=== PATIENT | female | born 1935 | race Caucasian/White ===

== ENCOUNTER → 2019-09-11 | Outpatient (CLI) | payer OTHER, MEDICARE ==
[~2019-09-11] MED LIST: ADVAIR HFA115 MCG/21 INH; AMOXICILLIN 50500 MG PO; ASPIRIN325 OR; AVAPRO75 MG PO; BONIVA150 MG PO; CALCIUM 600 +1 EAC1 PO; CALCIUM PO; CEFUROXIME250 MG PO; CENTRUM SILVER1 EAC4 PO; CLONAZEPAM 1 MG1 M1 PO; GABAPENTIN OR; HYDROCODON-ACE1 EAC8; HYDROCODONE-APA1 TA1 PO; KEFLEX250 MG PO; MOBIC15 MG; MYRBETRIQ PO; NEURONTIN 300300 M1 PO; NORCO 5-325 TA1 EACH PO; PRILOSEC 20 MG20 MG OR; REQUIP PO; SIMVASTATIN40 MG PO; SOTALOL 120 MG120 MG PO; STOOL SOFTENER100 M1 PO; SYNTHROID100 MCG OR; ZOFRAN ODT4 MG PO; ZOLOFT50 MG PO; ZYRTEC10 MG PO
== END ==
LOC: SJCVC 12:44
DX: I47.1 Supraventricular tachycardia (principal); I25.10 Atherosclerotic heart disease of native coronary artery without angina pectoris; I10 Essential (primary) hypertension; E78.5 Hyperlipidemia, unspecified; E11.9 Type 2 diabetes mellitus without complications; E03.9 Hypothyroidism, unspecified; Z90.710 Acquired absence of both cervix and uterus; Z96.641 Presence of right artificial hip joint; Z87.891 Personal history of nicotine dependence

== ENCOUNTER → 2020-03-29 | Outpatient (CLI) | payer OTHER, MEDICARE | LOC: SJCVC 14:07 | PROVIDERS: ATTEND Internal Medicine | DX: I44.0 Atrioventricular block, first degree (principal); R94.31 Abnormal electrocardiogram [ECG] [EKG]; I25.10 Atherosclerotic heart disease of native coronary artery without angina pectoris; I47.1 Supraventricular tachycardia; I10 Essential (primary) hypertension; E78.5 Hyperlipidemia, unspecified; E11.9 Type 2 diabetes mellitus without complications; Z79.899 Other long term (current) drug therapy ==

== ENCOUNTER → 2020-12-12 | Outpatient (CLI) | payer OTHER, MEDICARE | LOC: SJCVC 13:11 | PROVIDERS: ATTEND Internal Medicine | DX: R94.31 Abnormal electrocardiogram [ECG] [EKG] (principal); I44.0 Atrioventricular block, first degree; I25.10 Atherosclerotic heart disease of native coronary artery without angina pectoris; I47.1 Supraventricular tachycardia; I10 Essential (primary) hypertension; E78.5 Hyperlipidemia, unspecified; E11.9 Type 2 diabetes mellitus without complications; E03.9 Hypothyroidism, unspecified; M19.90 Unspecified osteoarthritis, unspecified site; Z90.710 Acquired absence of both cervix and uterus; Z88.5 Allergy status to narcotic agent; Z88.8 Allergy status to other drugs, medicaments and biological substances; Z79.82 Long term (current) use of aspirin; Z79.899 Other long term (current) drug therapy; Z87.891 Personal history of nicotine dependence ==

== ENCOUNTER 2021-05-24 15:33 | Inpatient (IN) | payer OTHER, MEDICARE ==
[~2021-05-24] VITALS: Ht 170.2 cm; Wt 82.2 kg
[2021-05-24 15:34] VITALS: BP 166/84
[2021-05-24 16:24] LABS: HEMATOCRIT 25.9 % (37.0-47.0); HEMOGLOBIN 8.6 gm/dL (12.0-15.0); MCH 28.2 pg (26.0-34.0); MCHC 33.4 g/dL (28.0-37.0); MCV 84.5 fL (80.0-100.0); RBC 3.06 mil/uL (4.20-5.00); WBC 16.5 thou/uL (4.0-11.0)
[2021-05-24 16:30] LABS: ANION GAP 13 mmol/L (7-16); BUN 23 mg/dL (7-18); CALCIUM 8.2 mg/dL (8.5-10.1); CHLORIDE 97 mmol/L (98-107); CO2 25 mmol/L (21-32); CREATININE 1.3 mg/dL (0.6-1.0); GLUCOSE 170 mg/dL (74-106); SODIUM 135 mmol/L (136-145)
[2021-05-24 16:40] LABS: ALBUMIN 3.2 g/dL (3.4-5.0); MAGNESIUM 1.8 mg/dL (1.8-2.4); PHOSPHORUS 2.7 mg/dL (2.6-4.7); SALICYLATE < 2.8 mg/dL (2.8-20.0); SGOT 27 U/L (15-37); SGPT 30 U/L (14-59); TOTAL BILIRUBIN 0.7 mg/dL (0.2-1.0); TOTAL PROTEIN 6.2 g/dL (6.4-8.2)
[2021-05-24 17:41] LABS: URINE BILIRUBIN NEGATIVE (Negative); URINE BLOOD TRACE (Negative); URINE CLARITY CLEAR; URINE COLOR YELLOW; URINE GLUCOSE-RANDOM* NEGATIVE (Negative); URINE KETONES 1+ (Negative); URINE LEUKOCYTES-REFLEX NEGATIVE (Negative); URINE NITRITE-REFLEX NEGATIVE (Negative); URINE PROTEIN (DIPSTICK) TRACE (Negative); URINE SPECIFIC GRAVITY >= 1.030 (1.005-1.035); URINE UROBILINOGEN 0.2 E.U./dl (0.2-1.0)
[2021-05-24 18:16] LABS: AMP/METHAMP Negative (Negative); BARBITURATES Negative (Negative); BENZODIAZEPINES Negative (Negative); COCAINE Negative (Negative); METHADONE Negative (Negative); OPIATES Negative (Negative); PCP Negative (Negative)
[2021-05-25 04:50] LABS: HEMATOCRIT 25.5 % (37.0-47.0); HEMOGLOBIN 8.1 gm/dL (12.0-15.0); MCH 27.3 pg (26.0-34.0); MCHC 31.9 g/dL (28.0-37.0); MCV 85.7 fL (80.0-100.0); RBC 2.97 mil/uL (4.20-5.00); RDW 15.3 % (10.5-14.5); WBC 15.6 thou/uL (4.0-11.0)
[2021-05-25 05:04] LABS: CALCIUM 7.7 mg/dL (8.5-10.1); CREATININE 1.4 mg/dL (0.6-1.0); POTASSIUM 3.6 mmol/L (3.5-5.1)
--- NOTE | 2021-05-25 07:34 | NUR ---
POSITIVE BLOOD CULTURES REPORTED TO CHARGE NURSE
[2021-05-25 11:25] VITALS: BP 85/51
[2021-05-25 11:58] VITALS: BP 103/52
[2021-05-25 16:00] VITALS: BP 102/53
--- NOTE | 2021-05-25 19:42 | NUR ---
PT IS AXOX4, COOPERATIVE. VS 90-100SBP, AFEBRILE, AFIB ON THE MONITOR. PT C/O CHRONIC PAIN IN R HIP, PAIN IN L SHOULDER, MOST LIKELY R/T POSITIONING OFF HIP. PT ALSO C/O LEGS MOVING FROM RESTLESS SYNDROME. PT EDUCATED ON HOW RX CLONAZEPAM IS TAKEN HS. PT COMMUNICATED UNDERSTANDING BUT NEEDS REINFORCEMENT. PT ON 1500ML FLUID RESTRICTION. POC IS TO CONTINUE TO MONITOR HR FOR AFIB RVR, IV ABX FOR CAP. FALL PRECAUTIONS IN PLACE. POSS REHAB FOR PT SHE PROGRESSES TOWARDS D/C GOALS. NO CONCERNS AT THIS TIME.
[2021-05-25 20:30] VITALS: BP 118/61
--- NOTE | 2021-05-25 22:45 | NUR ---
AASSUMED PT CARE AT 1900.PT WAS OBSERVED SITTING UP ON HER BED LEANING ON HER L ARM FOR SUPPORT.MA CATH IN PLACE WITH GOOD OUTPUT.PT ALERT BUT VERY [place],LEFT HEARING AID AT HOME.PT ABLE TO MAKE HER NEEDS KNOWN.FREQUENT CHECKS MAINTAINED.CALL LIGHT WITHIN REACH.
[2021-05-26 05:00] VITALS: BP 111/55
[2021-05-26 05:20] LABS: ABSOLUTE NEUTROPHILS 13.1 thou/uL (1.4-8.2); BASOPHILS 0.2 % (0.0-2.0); EOSINOPHILS 0.2 % (0.0-3.0); HEMATOCRIT 25.9 % (37.0-47.0); HEMOGLOBIN 8.4 gm/dL (12.0-15.0); LYMPHOCYTES 3.4 % (24.0-44.0); MCH 27.7 pg (26.0-34.0); MCHC 32.4 g/dL (28.0-37.0); MCV 85.5 fL (80.0-100.0); MONOCYTES 10.1 % (1.0-8.0); PLATELET COUNT 240 thou/uL (150-400); POLYS 86.1 % (36.0-66.0); RBC 3.03 mil/uL (4.20-5.00); WBC 15.2 thou/uL (4.0-11.0)
[2021-05-26 05:49] LABS: ALBUMIN 2.6 g/dL (3.4-5.0); CALCIUM 7.8 mg/dL (8.5-10.1); CREATININE 1.6 mg/dL (0.6-1.0); PHOSPHORUS 3.1 mg/dL (2.5-4.9)
[2021-05-26 05:52] LABS: POTASSIUM 2.9 mmol/L (3.5-5.1)
[2021-05-26 07:29] VITALS: BP 102/65
--- NOTE | 2021-05-26 07:39 | EKG ---
[place] [address] [employer] [facility] [employer] [place] [address] ELECTROCARDIOGRAM REPORT Name: ALEXEY SIDDIQUI Room #: 212-P ADM IN M.R.#: [id number] Admission: 05/24/21 Attend Phys: Leodan Parsons MD Discharge: Date of : 34 Report #: [id number] [facility] ED Test Date: 2021-05-24 Test Time: 19:18:36 Pat Name: ALEXEY SIDDIQUI Department: Room: [facility] Gender: F Heavy Equipment Diesel Mechanic: fransisco : 1935 Requested By: Quique Villanueva Order Number: [id number] MD: Ihsan Alfaro Measurements Intervals [place] Rate: 115 P: [place]: QRS: 10 QRSD: 100 T: 59 QT: 351 QTc: 486 Interpretive Statements Atrial fibrillation Ventricular premature complex RSR' in V1 or V2, right VCD or RVH Borderline prolonged QT interval Baseline wander in lead(s) V2 Compared to ECG 08/08/2010 08:12:59 Ventricular premature complex(es) now present Right ventricular hypertrophy now present RSR' in V1 or V2 now present Sinus bradycardia no longer present First degree AV block no longer present Electronically Signed On 05-26-2021 7:38:52 POSTDOCTORAL RESEARCH ASSOCIATE by Ihsan Alfaro [email or web address] <ELECTRONICALLY SIGNED> By: Ihsan Alfaro MD, FACC 05/26/21 0738 17 17 Ihsan Alfaro MD, [facility] /EPI
[2021-05-26 10:37] LABS: % SATURATION 5 % (20-39); IRON 10 ug/dL (50-170); TIBC 215 ug/dL (250-450)
[2021-05-26 11:44] VITALS: BP 93/52
[2021-05-26 15:38] VITALS: BP 99/52
--- NOTE | 2021-05-26 17:15 | NUR ---
met with patient who resides in independent living at [facility]. She reports she uses a walker. She reports she has home health care but cannot recall agency. patient independent with adls. She reports she has only recently moved to [place] in last 4 months. She has had 2 falls in apt. Spouse in November. She reports she has not been to [facility]. Therapy evals in process. Casemgt following.
[2021-05-26 19:19] VITALS: BP 102/52
[2021-05-27 03:43] VITALS: BP 102/44
[2021-05-27 05:33] LABS: HEMATOCRIT 25.1 % (37.0-47.0); HEMOGLOBIN 8.1 gm/dL (12.0-15.0); MCH 27.4 pg (26.0-34.0); MCHC 32.2 g/dL (28.0-37.0); MCV 84.9 fL (80.0-100.0); RBC 2.96 mil/uL (4.20-5.00); RDW 15.1 % (10.5-14.5); WBC 11.5 thou/uL (4.0-11.0)
[2021-05-27 05:50] LABS: ALBUMIN 2.5 g/dL (3.4-5.0); CALCIUM 7.8 mg/dL (8.5-10.1); CREATININE 1.4 mg/dL (0.6-1.0); PHOSPHORUS 2.4 mg/dL (2.5-4.9); POTASSIUM 3.5 mmol/L (3.5-5.1)
--- NOTE | 2021-05-27 06:15 | NUR ---
PATIENT HAS BEEN AFIB, RA, AND A&OX4 THROUGHOUT THE NIGHT. PATENT IV STILL PRESENT. MA CATHETER IN PLACE. COMPLAINTS OF BACK PAIN A COUPLE TIMES DURING THE NIGHT-RELIEVED BY MEDICATION. PATIENT REPORTED SORE THROAT WITH BREATHING TREATMENTS--ORDERS RECEIVED FOR THROAT LOSENGES. PATIENT RESTING COMFORTABLY AT THIS TIME.
[2021-05-27 07:17] VITALS: BP 109/60
--- NOTE | 2021-05-27 07:51 | EKG ---
[address] [place] [address] ELECTROCARDIOGRAM REPORT Name: SIDDIQUIJOHNH YANNA Room #: 212- ADM IN M.R.#: [id number] Admission: 05/24/21 Attend Phys: Lawrence Pa Discharge: Date of : 34 Report #: [id number] [facility] Test Date: 2021-05-27 Test Time: 07:29:36 Pat Name: ALEXEY SIDDIQUI Department: Room: 212 Gender: F Patent Law Specialist: BABS : 1935 Requested By: Jeffery Ventura Order Number: [id number] : Ihsan Alfaro Measurements Intervals [place] Rate: 94 P: [place]: QRS: 39 QRSD: 98 T: 61 QT: 407 QTc: 510 Interpretive Statements Atrial fibrillation Ventricular premature complex Compared to ECG 05/24/2021 19:18:36 Right ventricular hypertrophy no longer present Electronically Signed On 05-27-2021 7:51:05 CUSTOMER ACCOUNT ADMINISTRATOR by Ihsan Alfaro [email or web address] <ELECTRONICALLY SIGNED> By: Ihsan Alfaro MD, [facility] 05/27/21 0751 0729 0729 Ihsan Alfaro MD, FACC /EPI
--- NOTE | 2021-05-27 09:35 | HC ---
[facility] [place] [address] CONSULTATION Name: ALEXEY SIDDIQUI Room #: 212-P ADM IN M.R.#: [id number] Admission: 05/24/21 Attend Phys: Lawrence Pa Discharge: Date of : 34 Report #: [id number] THIS REPORT FOR: cc: Mallory Monte MD,Dinora Jovel,Nikolas Marsh MD ~ DATE OF SERVICE: 05/25/2021 REASON FOR CONSULTATION: Atrial fibrillation with rapid ventricular response. HISTORY OF PRESENT ILLNESS: This is a very pleasant 86-year-old female patient who was in her nursing care facility and was transferred for weakness and nausea and vomiting. The patient has a history of hypertension, diabetes, who came from [facility] with weakness and she states she has been not feeling well for several days. She has been having some nausea, vomiting and fell a couple of times over the last several months due to weakness different than what she feels today. The patient denies any chest discomfort, fever, chills or night sweats. She is a little bit disoriented, but mostly complains of her having pain in her hip area. The patient presented to the Emergency Room and was in atrial fib with a rapid rate and was started on diltiazem with rate has been better controlled. No orthopnea or PND described prior to the last several days when she started feeling poorly. ALLERGIES: CODEINE, REQUIP, ACETAMINOPHEN, PROPOXYPHENE AND PROMETHAZINE. PAST MEDICAL HISTORY: Significant for: 1. Hypertension. 2. Hypothyroidism, treated medically. 3. Non-insulin requiring diabetes mellitus. 4. Gastroesophageal reflux disease. 5. Dyslipidemia. PAST SURGICAL HISTORY: Consistent with: 1. Fracture of the styloid process of the left ulna. 2. Facial contusions. 3. Left radius bone fracture. 4. Total right hip replacement and revision. 5. Partial thyroidectomy. 6. Bilateral cataract without implants. 7. Lumbar laminectomy. MEDICATIONS: From the longterm were Synthroid 100 mcg daily, omeprazole 20 daily, aspirin 325 daily, simvastatin 40 daily, irbesartan 75 daily, Zoloft 50 daily, clonazepam 1 mg, hydrocodone, Zyrtec 10 mg, cephalexin 250, calcium carbonate, multivitamin, Boniva and stool softener. [address] [address] CONSULTATION Name: SIDDIQUIALEXEY Room #: [address] [place] [address] IN .R.#: [id number] Admission: 05/24/21 Attend Phys: Lawrence Pa Discharge: Date of : 34 Report #: [id number] SOCIAL HISTORY: The patient lives at institution. Does not smoke currently. She was a former smoker. Does not consume alcohol. Exercises regularly. REVIEW OF SYSTEMS: Except for symptoms previously mentioned and those commensurate with comorbid states a 10-point review of system is negative. LABORATORY DATA: Demonstrate and H and H of 8.6 and 25.5 with a platelet count of 246,000. Troponin high sensitivity is 48. TSH is 0.457, potassium 4.0, BUN and creatinine are 23 and 1.3. PHYSICAL EXAMINATION: VITAL SIGNS: Reviewed and noted in the chart. HEENT: Normocephalic, atraumatic. Pupils are equal, round, reactive to light and accommodation. Extraocular muscles are intact. Sclerae and conjunctivae are anicteric. NECK: JVD is normal. Carotid upstrokes are bilaterally symmetrical. No bruits are heard. No thyromegaly. No lymphadenopathy. LUNGS: Clear to auscultation. No wheezes, rhonchi or crackles. No CVA tenderness. CARDIAC: Demonstrates irregularly irregular rhythm, controlled rate. No murmurs. ABDOMEN: Soft, nontender, nondistended. Normal bowel sounds. EXTREMITIES: Without cyanosis, clubbing or edema. Distal pulses are intact. DTR symmetrical. NEUROLOGIC: Cranial nerves 2-12 are grossly normal and symmetrical. PSYCHIATRIC: Alert, oriented with normal affect. SKIN: Warm and dry. RADIOLOGIC DATA: Diffuse coarse infiltrates are noted on chest x-ray. CT scan of head shows no bleed. IMPRESSION: 1. Atrial fibrillation with rapid ventricular response, multifactorial, on IV diltiazem. Continue as is. We will get echocardiogram in the a.m. to evaluate left ventricular function and contractility. She has been likely in atrial fibrillation for more than 48 hours and anticoagulation prior to cardioversion is warranted or DAIN approach can be followed if necessary. 2. Weakness, multifactorial. Had been having physical therapy. Has fallen in the past. Physical therapy needs to be optimized. Geriatric consultation will be appropriate. 3. Hypertension, well controlled at home. Apparently no need to make any other changes. We will monitor closely while hospitalized and then determine the next options of how to reinitiate medications. 4. Dyslipidemia, on statin. [place] [employer] step 1 diet at the longterm would be appropriate. [facility] [address] [place] [address] CONSULTATION Name: ALEXEY SIDDIQUI Room #: 212-P [facility] IN M.R.#: [id number] Admission: 05/24/21 Attend Phys: Lawrence Pa Discharge: Date of : 34 Report #: [id number] 5. Hypothyroidism. Appears to be euthyroid, on supplementation. 6. Diabetes mellitus. No documentation of any unusual lab work, not available for me to review at present time. <ELECTRONICALLY SIGNED> By: Nikolas Jovel MD 05/27/21 0935 1117 1312 Nikolas Jovel MD /nt
[2021-05-27 11:17] VITALS: BP 99/51
[2021-05-27 11:57] LABS: URINE BILIRUBIN NEGATIVE (Negative); URINE BLOOD 1+ (Negative); URINE CLARITY CLEAR; URINE COLOR YELLOW; URINE GLUCOSE-RANDOM* NEGATIVE (Negative); URINE KETONES NEGATIVE (Negative); URINE LEUKOCYTES-REFLEX NEGATIVE (Negative); URINE NITRITE-REFLEX NEGATIVE (Negative); URINE PROTEIN (DIPSTICK) NEGATIVE (Negative); URINE SPECIFIC GRAVITY 1.015 (1.005-1.035); URINE UROBILINOGEN 0.2 E.U./dl (0.2-1.0)
[2021-05-27 12:04] LABS: SQUAMOUS 0-3 Few /LPF (0-3); URINE WBC-REFLEX None Seen /HPF (0-5)
[2021-05-27 12:05] LABS: BACTERIA-REFLEX None Seen /HPF (None Seen); CRYSTALS None Seen /LPF (None Seen); URINE RBC None Seen /HPF (NONE SEEN)
--- NOTE | 2021-05-27 13:21 | NUR ---
patient evaled by acute rehab 5N. Patient accepted. patient agreeable. Sp with dtr Ryanne discussed acute rehab she is agreeable. Assured patient would stay in acute rehab until team conference on .
--- NOTE | 2021-05-27 15:12 | NUR ---
PATIENT COMPLAINING OF SEVERE ABDOMINAL PAIN THIS MORNING. DR. KELLEY NOTIFED WHILE PATIENT IN ROUTE TO CT OF CHEST. SUGGESTED IMAGING OF ABDOMEN, DR. KELLEY DECLINED, NOTED ABDOMINAL CT ON ADMIT. ORDERS FOR ENEMA BUT PATIENT REFUSED, DR. KELLEY NOTIFIED OF DECLINE. ORDERS TO GIVE DOSE OF MILK OF MAG. PATIENT ALSO COMPLAINING OF HIP PAIN BUT HAS REFUSED TO TAKE HYDROCODONE FOR PAIN, OFFERED THROUGH OUT THE DAY. INQUIRED IF PATIENT WOULD LIKE ANYTHING ELSE TO HELP WITH PAIN. WARM BLANKET PROVIDED. CURRENTLY SITTING UP IN CHAIR. VOICES NO NEEDS OR CONCERNS AT THIS TIME.
[2021-05-27 15:32] VITALS: BP 105/61; BP 109/61; BP 111/42
[2021-05-27 19:19] VITALS: BP 104/56
--- NOTE | 2021-05-28 04:08 | NUR ---
PATIENT RESTING IN BED DURING SHIFT. C/O PAIN IN LEFT AND RIGHT HIP AND LOWER ABDOMEN RIGHT AND LEFT. PATIENT UP TO BR SEVERAL TIMES DURING SHIFT. USES GAIT BELT, WALKER AND OXYGEN, CHANGE TO BSC. WAITING FOR OCCULT STOOL SAMPLE.
[2021-05-28 04:09] VITALS: BP 140/63
[2021-05-28 05:56] LABS: ABSOLUTE NEUTROPHILS 9.1 thou/uL (1.4-8.2); BASOPHILS 0.4 % (0.0-2.0); EOSINOPHILS 2.2 % (0.0-3.0); HEMATOCRIT 24.4 % (37.0-47.0); LYMPHOCYTES 4.4 % (24.0-44.0); MCH 27.9 pg (26.0-34.0); MCHC 32.8 g/dL (28.0-37.0); MCV 85.1 fL (80.0-100.0); MONOCYTES 9.9 % (1.0-8.0); PLATELET COUNT 310 thou/uL (150-400); POLYS 83.1 % (36.0-66.0); RBC 2.87 mil/uL (4.20-5.00); RDW 15.2 % (10.5-14.5); WBC 10.9 thou/uL (4.0-11.0)
[2021-05-28 06:31] LABS: CALCIUM 8.2 mg/dL (8.5-10.1); CREATININE 1.2 mg/dL (0.6-1.0); POTASSIUM 4.2 mmol/L (3.5-5.1)
[2021-05-28] MEDS ORDERED: DILTIAZEM 24HR300 M2 PO (08:45)
[2021-05-28] MEDS ORDERED: CEFUROXIME500 MG PO (08:46)
[2021-05-28 08:50] VITALS: BP 116/71
[2021-05-28] MEDS ORDERED: BAYER CHEWABLE81 MG PO (08:52)
[2021-05-28] MEDS ORDERED: SODIUM CHLORI1000 MG PO (08:52)
[2021-05-28 09:57] VITALS: BP 116/71
--- NOTE | 2021-05-28 10:55 | NUR ---
NO FALLS OR INJURIES THIS SHIFT. ALL SAFETY MEASURES IN PLACE. VSS. PATIENT ABLE TO COMPLETE ADLS WITH ASSISTANCE. PATIENT C/O PAIN TO ABDOMEN BUT HAS REFUSED HYDROCODONE. MIRLAX ORDERED AND GIVEN TO PATIENT IN APPLE JUICE. PATIENT UP IN CHAIR THIS MORNING FOR ONE HOUR AND THEN RETURNED TO BED. NEW ORDER FOR 300 MG OF CARDIZEM BUT 240MG HAD ALREADY BEEN GIVEN WITH MORNING MEDICATIONS. NEW ORDER MARKED OFF. CALL FROM LAUREN WITH REHAB FOR ADDITIONAL INFORMATION ON PATIENT. WAITING FOR DAY NURSE TO CALL FOR COMPLETE REPORT. [facility]
--- NOTE | 2021-05-28 11:50 | NUR ---
Patient to tranfer to acute 5N today. Sp with lisa warren who is bringing patients close today. Updated plan admission to [id number] no further needs.
--- NOTE | 2021-05-28 12:07 | NUR ---
REPORT GIVEN BY HAILE. PATIENT TRANSFERRED UP TO 5N.
== END 2021-05-28 12:01 | disposition home health service (06) | DRG 871 ==
LOC: ER 15:33 → EROBS 22:25 → 2N 22:25
PROVIDERS: Emergency Medicine; Internal Medicine; Nurse Practitioner Family; ADMIT Hospitalist; ATTEND Hospitalist
DX: A40.1 Sepsis due to streptococcus, group B (principal); J18.9 Pneumonia, unspecified organism; I48.92 Unspecified atrial flutter; E87.1 Hypo-osmolality and hyponatremia; Z20.822 Contact with and (suspected) exposure to COVID-19; K21.9 Gastro-esophageal reflux disease without esophagitis; Z96.641 Presence of right artificial hip joint; E03.9 Hypothyroidism, unspecified; E78.00 Pure hypercholesterolemia, unspecified; F32.9 Major depressive disorder, single episode, unspecified; F41.9 Anxiety disorder, unspecified; I48.91 Unspecified atrial fibrillation; E78.5 Hyperlipidemia, unspecified; R53.81 Other malaise; Z60.2 Problems related to living alone; I25.10 Atherosclerotic heart disease of native coronary artery without angina pectoris; E11.22 Type 2 diabetes mellitus with diabetic chronic kidney disease; I12.9 Hypertensive chronic kidney disease with stage 1 through stage 4 chronic kidney disease, or unspecified chronic kidney disease; D50.9 Iron deficiency anemia, unspecified; M81.0 Age-related osteoporosis without current pathological fracture; N18.32 Chronic kidney disease, stage 3b; M19.90 Unspecified osteoarthritis, unspecified site; Z98.42 Cataract extraction status, left eye; Z98.41 Cataract extraction status, right eye; Z88.6 Allergy status to analgesic agent; Z88.8 Allergy status to other drugs, medicaments and biological substances; Z87.891 Personal history of nicotine dependence; Z79.82 Long term (current) use of aspirin; Z79.899 Other long term (current) drug therapy
CPT/HCPCS: 10081

== ENCOUNTER 2021-05-27 12:09 | Inpatient (IN) | payer OTHER, MEDICARE ==
[~2021-05-27] VITALS: Ht 170.2 cm; Wt 81.8 kg
[~2021-05-27 12:09] MED LIST changes: -PRILOSEC 20 MG20 MG OR; +PRILOSEC OTC20 MG PO; +SYNTHROID100 MC1 PO; -SYNTHROID100 MCG OR; +ZOLOFT 50 MG TA50 MG PO; -ZOLOFT50 MG PO
[2021-05-28] MEDS ORDERED: DILTIAZEM 24HR300 M2 PO (08:45)
[2021-05-28] MEDS ORDERED: CEFUROXIME500 MG PO (08:46)
[2021-05-28] MEDS ORDERED: BAYER CHEWABLE81 MG PO (08:52)
[2021-05-28] MEDS ORDERED: SODIUM CHLORI1000 MG PO (08:52)
--- NOTE | 2021-05-28 12:44 | NUR ---
1200 ADMITTED TO ROOM 510. KEVIN IS ALERT AND ORIENTED X4., BUT IS VERY LIME AND USES HEARING AIDS. PATIENT WEARS GLASSES, AND HEARING AIDS BILATERALLY. LUNGS ARE CLEAR AND DEMINISHED, WITH OCCASIONAL COUGH. PATIENT CONINUES ON 02 AT 2L PER N/C. 02 SAT 98%. PATIENT CONTINUES ON RESPIRATORY TX. ABD IS SOFT WITH BSX4. NO BM X5-6 DAYS. LAXATIVES GIVEN. PATIENT IS UP TO THE BSC WITH ASSIST OF 1 STAFF AND GAIT BELT. FALL AND SAFETY PROTOCOLS IN PLACE. C/O BACK PAIN. MEDICATED WITH PRN PAIN MED. PT/OT/ST EVALS TO BE DONE LATER TODAY AND IN THE A.M. APPETITE IS POOR. WILL CONTINUE TO MONITER.
--- NOTE | 2021-05-28 16:08 | NUR ---
CONSULT COMPLETED WITH DR. GHOSH'S OFFICE SPOKE WITH (JD). ALSO COMPLETED CONSULT WITH DR. HIGGINS'S OFFICE SPOKE WITH (EVE). MESSAGE LEFT ON DR. UMANZOR'S OFFICE VOICEMAIL THE OFFICE IS CLOSED FOR HOLIDAY AT THIS TIME, TO REOPEN ON 06/02/21. CARGO TRIMMER (MONICA) AWARE PATIENT IS HERE, WILL ROUND ON HER TOMORROW.
--- NOTE | 2021-05-28 16:58 | NUR ---
86 yr old male admitted to hospital on 05/24/21 with weakness, . she was diagnosed with afib with RVR, CAP with sepsis, and anemia. cardiology consulted. she is given 02 per NC, abx, and nebs for her pna. pt lives at [facility] only for few months since her in November. independent with ADLs. Has a 4ww. She has had 2 falls since she moved to [facility]. Daughter briana and her grandson samantha main contacts. There are meals that can be ordered to room or can go to dining room for meals. No stairs, has elevator can use. New to acute rehab today. Cm visited with her daughter briana via phone call and have asked for a updated facesheet with correct contacts. Will cont following as needed for dc needs.
[2021-05-28 20:02] VITALS: BP 135/56
--- NOTE | 2021-05-28 22:27 | NUR ---
ASSUMED CARE OF PT AT 1910. PT IS A&OX4 & FORGETFUL AT TIMES. IS EKUK & HAS NICOLAS. IS ON 2L OF O2/NC. DENIES SOB OR DIFFICULTY BREATHING. IS STABLE. REPORTS GENERALIZED PAIN, BUT REFUSED MEDS. THERAPUETIC INTERVENTIONS USED TO MANAGE. IS ABLE TO TURN SELF WITH SOME ASSISTANCE Q2H. HEELS OFF LOADED. PT IS CURRENTLY LYING IN BED, WATCHING TV. CALL LIGHT WITHIN REACH. IS UP WITH 1 ASSIST, GB, WALKER. FALL PRECAUTIONS & HOURLY ROUNDING CONTINUED THIS SHIFT. LABS & VITALS REVIEWED. WILL CONTINUE TO MONITOR.
[2021-05-29 05:34] LABS: HEMATOCRIT 23.5 % (37.0-47.0); HEMOGLOBIN 7.6 gm/dL (12.0-15.0); MCH 27.8 pg (26.0-34.0); MCHC 32.5 g/dL (28.0-37.0); MCV 85.5 fL (80.0-100.0); RBC 2.74 mil/uL (4.20-5.00); RDW 15.6 % (10.5-14.5); WBC 13.8 thou/uL (4.0-11.0)
[2021-05-29 06:25] LABS: CALCIUM 8.6 mg/dL (8.5-10.1); CREATININE 0.9 mg/dL (0.6-1.0); POTASSIUM 4.1 mmol/L (3.5-5.1)
[2021-05-29 07:27] VITALS: BP 138/59
[2021-05-29 10:00] VITALS: BP 133/59
--- NOTE | 2021-05-29 16:45 | NUR ---
ASSUMED C/O PT AT 0700. PT HAS AUDIBLE WHEEZING. RT NOTIFIED, MADE AWARE. PO LASIX AND SCHEDULED BRETHING TX ORDERED. PT NOW ON RA WITH NO AUDIBL WHEEZING PT GAIT STEADY WITH WALKER GAIT BELT, UP TIMES ONE WITH MINIUM ASSIT. PT HAD TROUBLE SWAOLLOWING PILLS, THIS NURSE GAVE PILLS CRUSHED IN APPLESAUCE HOWEVER PT DID NOT LIKE THAT. PT PT DOES NOT LIKE TAKING HER MEDS SHE TOOK ALL BUT WAS VERY FUSSY ABOUT IT. PT TOOK MOST PILLS ONE AT A TIME IN APPLESAUCE. WILL CONTINUE TO MONITOR.
[2021-05-29 19:35] VITALS: BP 127/61
--- NOTE | 2021-05-30 00:52 | NUR ---
PT ASSESSMENT COMPLETED AND VSS. MEDS GIVEN ORDERED AND WELL TOLERATED. PT CONCERNED ABOUT HER ABILITY TO SWALLOW SOLIDS AND PILLS. SHE STATES THAT THEY SOMETIMES GET STUCK IN HER THROAT. WILL INFORM DAY RN IN THE MORNING. ASST WITH REPOSITION FOR COMFORT. PT IMPULSIVE AND FORGETFUL. SLEEPING WELL AT THIS TIME. PAIUTE OF [place]. WILL CONTINUE TO MONITOR FREQUENTLY.
[2021-05-30 07:15] VITALS: BP 120/50
--- NOTE | 2021-05-30 11:41 | NUR ---
ASSUMED CARE AT 0700. PATIENT IS ALERT AND ORIENTEDX4, BUT FORGETFUL. PATIENT DE JESUS'S, BIOMASS FACILITATOR ARE EQUAL. PATIENT IS VERY [place]. HEARING AIDS IN PLACE. LUNGS ARE DEMINISHED. PATIENT IS ON RA. PATIENT CONTINUES ON PO ABT WITHOUT ADVERSE AFFECTS. PATIENT HAS S.L. IN HER FORARM. PATIENT CONTINUES ON IV IRON WITHOUT ADVERSE AFFECCTS. FALL AND SAFETY PROTOCOLS IN PLACE. DENIES PAIN. PAIENT IS UP WITH ONE STAFF, GAIT BELT AND WALKER. PATIENT IS STILL UNSTEADY ON HER FEET. PATIENT CONTINUES TO PROGRESS SLOWLY TOWARDS D/C GOALS. WILL CONTINUE TO MONITER.
--- NOTE | 2021-05-30 12:01 | NUR ---
Nutrition: Pt admitted with general debility, falls. PMHx: DJD, DM2, afib RVR. Consult received for "food choices, poor appetite." Per [employer], pt is eating 25-75% of meals. She is forgetful. Heart Healthy diet. Labs: BG 132, albumin 2.5. Wt: 180#. Meds: MVI, aspirin. RD will add CHO count to diet order d/t DM. Will also order a Glucerna shake for encouragement of po intake. Please offer alternative menu choices to pt before meal times. Hopeful for increased po intake and good BG control. Otherwise, consider mild nutrition risk at this time.
--- NOTE | 2021-05-30 13:50 | H ---
[facility] [place] [address] HISTORY AND PHYSICAL Name: ALEXEY SIDDIQUI Room #: 510-P ADM IN M.R.#: [id number] Admission: 05/28/21 Attend Phys: Oscar Sandy MD Discharge: Date of : 34 Report #: [id number] THIS REPORT FOR: cc: Dinora Rivera MD,Dinora Sandy,Oscar Vidales MD ~ DATE OF SERVICE: 05/28/2021 HISTORY OF PRESENT ILLNESS: The patient is an 86-year-old white female who was admitted for acute in-hospital inpatient rehabilitation. The patient is an 86-year-old female originally admitted to [facility] on 05/24/2021 with weakness, nausea and decreased oral intake. She was diagnosed with atrial fibrillation with rapid ventricular response, community-acquired pneumonia with sepsis and anemia. Cardiology was consulted. She was placed on Cardizem for rate control. She was given O2 per nasal cannula and given nebulizers for her pneumonia. CT of the head showed no acute findings. CT of the abdomen and pelvis showed no acute findings. She was noted to have medical complexity, with generalized debilitation. She has now been admitted for acute in-hospital inpatient rehabilitation. PAST MEDICAL HISTORY: Includes controlled GERD, diet-controlled diabetic, lumbar laminectomy, total right hip replacement and revision, hypothyroidism, hypertension, high cholesterol, partial thyroidectomy, right hand tendon surgery, colonoscopy, depression, anxiety. FAMILY HISTORY: No pertinent family history. MEDICATIONS: Please see the full medications. ALLERGIES: SHE HAS ALLERGIES TO PROMETHAZINE, CODEINE, REQUIP, AND PROPOXYPHENE. SOCIAL HISTORY: She lives at [facility] living apartment. recently last spring. She is independent with ADLs, has a 4-wheeled walker, history of falls. REVIEW OF SYSTEMS: No complaints of chest pain, shortness of breath or abdominal discomfort. PHYSICAL EXAMINATION: GENERAL: The patient was seen later yesterday, 05/28/2021. She was in no distress. She was sleepy, but easily aroused and was appropriate. Followed basic commands without difficulty. VITAL SIGNS: Temperature 97.2, pulse 80, respirations 20, blood pressure 135/66. HEENT: Appeared to be benign. She was on nasal cannula O2. [address] [address] HISTORY AND PHYSICAL Name: ALEXEY SIDDIQUI Room #: [address] [place] [address] IN M.R.#: [id number] Admission: 05/28/21 Attend Phys: Oscar Sandy MD Discharge: Date of : 34 Report #: [id number] CHEST: Some decreased diffuse breath sounds, otherwise sounded clear. CARDIAC: Sounded irregular. ABDOMEN: Bowel sounds positive, nontender. GENITOURINARY: Deferred. RECTAL: Deferred. EXTREMITIES: She has functional range of motion of both upper extremities. Strength is a grade 4-/5. Lower extremities, no focal calf swelling. Strength is probably a grade 3+/5. She has been min assist with basic sit to stand and has ambulated a short distance min assist with a front-wheeled walker, just a couple of feet. ASSESSMENT: An 86-year-old white female with the following problem list: 1. Medical complexity with generalized debilitation and history of falls. 2. Atrial fibrillation with rapid ventricular response. 3. Community-acquired pneumonia, with sepsis. 4. Question of orthostatic hypotension. 5. Diabetes mellitus type 2. 6. Suspected peripheral neuropathy. 7. History of right total hip arthroplasty. 8. Degenerative arthritis. PLAN: The patient is admitted for acute in-hospital inpatient rehabilitation. Please see the previous and current functional status. As far as risk of complications, the patient has multiple medical comorbidities as noted above. Initial plan of care involves the interdisciplinary acute inpatient rehabilitation program. Measurable functional goals would be for the patient to become modified independent with transfers, mobility and ADLs, so she can hopefully return back to her prior living situation. Goal is to be independent again and a 4-wheeled walker. Prognosis is reasonably good with estimated length of stay probably around 14 days. Potential barriers would include her multiple medical comorbidities and decreased functional status. The patient's diagnosis is appropriate. She meets medical necessity criteria. She does have the tolerance for therapies and has appropriate discharge goals back to the home setting. <ELECTRONICALLY SIGNED> By: Oscar Sandy MD 05/30/21 1350 [id number] 1252 Oscar Sandy MD /nt
[2021-05-30 19:24] VITALS: BP 117/59
--- NOTE | 2021-05-31 03:43 | NUR ---
assumed care approx 1900 evening 05/30. pt alert and oriented x4, pleasant and cooperative, hard of hearing and forgetful at times. pt up to bathroom and changed into gown at hs. pt took hs meds with water one at a time tolerating well as pt refused applesauce. pt appears to be sleeping soundly. bed alarm on and call light in reach. will continue to monitor.
[2021-05-31 05:48] LABS: HEMATOCRIT 22.7 % (37.0-47.0); HEMOGLOBIN 7.5 gm/dL (12.0-15.0); MCH 28.2 pg (26.0-34.0); MCHC 33.1 g/dL (28.0-37.0); MCV 85.4 fL (80.0-100.0); RBC 2.65 mil/uL (4.20-5.00); RDW 15.3 % (10.5-14.5); WBC 17.6 thou/uL (4.0-11.0)
[2021-05-31 05:59] LABS: CALCIUM 8.4 mg/dL (8.5-10.1); CREATININE 1.1 mg/dL (0.6-1.0); MAGNESIUM 2.1 mg/dL (1.8-2.4); POTASSIUM 3.8 mmol/L (3.5-5.1)
[2021-05-31 06:12] LABS: PLATELET COUNT 471 thou/uL (150-400)
[2021-05-31 08:00] VITALS: BP 122/63
[2021-05-31 08:04] LABS: METAMYELOCYTES 2 %; PLATELET ESTIMATE NORMAL
[2021-05-31 09:30] VITALS: BP 122/63
[2021-05-31 17:31] LABS: URINE BILIRUBIN NEGATIVE (Negative); URINE BLOOD NEGATIVE (Negative); URINE CLARITY CLEAR; URINE COLOR YELLOW; URINE GLUCOSE-RANDOM* NEGATIVE (Negative); URINE KETONES NEGATIVE (Negative); URINE LEUKOCYTES NEGATIVE (Negative); URINE NITRITE NEGATIVE (Negative); URINE PROTEIN (DIPSTICK) NEGATIVE (Negative); URINE SPECIFIC GRAVITY <= 1.005 (1.005-1.035); URINE UROBILINOGEN 0.2 E.U./dl (0.2-1.0)
[2021-05-31 20:00] VITALS: BP 140/70
--- NOTE | 2021-06-01 02:12 | NUR ---
assumed care approx 1900 evening 05/31. pt sitting up in recliner at change of shift, alert and oriented x4, appropriate and cooperative, hard of hearing and forgetful. pt assist up to bathroom and gown change at hs. pt took meds one at a time with water (refused applesauce) tolerating well. pt appears to be sleeping soundly.bed alarm on and call light in reach. will continue to monitor.
--- NOTE | 2021-06-01 17:23 | NUR ---
PT CAN ANSWER ORIENTATION QUESTIONS, HOWEVER PT IS VERY CONFUSED. PT IS SUPPOSED TO TAKE MEDS WHOLE ONE AT A TIME IN APPLESAUCE OR PUDDING. PT DOES NOT LIKE THIS AND HAS TO BE REMINDED OF THE RISKS OF SWALLOWING PILLS. PT HAS HARD TIME REMEBERING DAY TO DAY CONVERSATIONS. WILL CONTINUE TO MONITOR.
[2021-06-01 19:50] VITALS: BP 128/65
[2021-06-02 07:15] VITALS: BP 129/64
[2021-06-02 09:45] VITALS: BP 129/64
[2021-06-02 20:06] VITALS: BP 128/55
[2021-06-03 02:27] VITALS: BP 136/60
--- NOTE | 2021-06-03 04:10 | NUR ---
PT calls with needs. Voids per the BR. Also has stress incontinence. Walks well with roller walker needing SBA. Calls appropriately. Room air, no cough noted. Occasional exp wheezes. Encouraged to use I/S. Call light with reach.
[2021-06-03 05:52] LABS: HEMATOCRIT 24.4 % (37.0-47.0); MCH 28.7 pg (26.0-34.0); MCHC 32.8 g/dL (28.0-37.0); MCV 87.5 fL (80.0-100.0); PLATELET COUNT 526 thou/uL (150-400); RBC 2.78 mil/uL (4.20-5.00); RDW 15.9 % (10.5-14.5); WBC 18.7 thou/uL (4.0-11.0)
[2021-06-03 06:07] LABS: CALCIUM 8.4 mg/dL (8.5-10.1); CREATININE 1.1 mg/dL (0.6-1.0); MAGNESIUM 2.2 mg/dL (1.8-2.4); POTASSIUM 3.9 mmol/L (3.5-5.1)
[2021-06-03 07:15] VITALS: BP 135/64
--- NOTE | 2021-06-03 08:00 | NUR ---
PT AWAKE THIS AM. PT STATED SHE USUALLY GETS UP AT 0930. PT STATED SHE WAS SOB, OXYGEN SAT 95% O2 WAS PLACED ON 1L NC FOR COMFORT. LUNGS CLEAR TO BASES. PT DENIES ANY PAIN AT THIS TIME. PT DOES TAKE MEDS WITH RASPBERRY YOGART. PT UP WITH X1 ASSIST WITH WALKER.
[2021-06-03 09:44] LABS: ABSOLUTE NEUTROPHILS 15.9 thou/uL (1.4-8.2); ANISOCYTOSIS SLIGHT; METAMYELOCYTES 1 %; MYELOCYTES 3 %; POIKILOCYTOSIS SLIGHT
[2021-06-03 09:45] LABS: OVALOCYTES OCCASIONAL
--- NOTE | 2021-06-03 12:50 | NUR ---
Team meeting, recommendation: c/o of reflex, mod to mild cognition, memory mod to severe. Pills and bills. diet down grade to [facility] soft. May need mild level of assistance for medication. [place] with hh and additional with medication. BPCI. DC on 06/06/21 at [facility]. HH (pt, ot, st, and nursing).
[2021-06-03 19:44] VITALS: BP 132/56
--- NOTE | 2021-06-04 02:16 | NUR ---
assumed care approx 1900 evening 06/03. pt sitting up in recliner at change of shift, alert and oriented x4, appropriate and cooperative, hard of hearing. pt pleasant and cooperative. pt up to bathroom with walker with 1 assist tolerating well. pt appears to be sleeping soundly. bed alarm on and call light in reach. will continue to monitor.
[2021-06-04 07:15] VITALS: BP 141/53
--- NOTE | 2021-06-04 09:16 | NUR ---
ASSISTED PT UP TO BATHROOM THIS AM. PT WAS CONT OF URINE. PT USING WALKER TO AMBULATE WITH STEADY GAIT. PT DENIES ANY PAIN. PT IS [place]. PT HAS ISSUES WITH RETENTION AND HAS TO EMPTY BLADDER WITH PRESSING ON ABD AND LEANING TO ONE SIDE, PT STATED THAT HER BLADDER HAS PROLAPSED BEFORE. PT HAS NO SOA WITH ACTIVITY. PT PLEASANT AND COOROPERATIVE WITH CARE.
--- NOTE | 2021-06-04 15:52 | NUR ---
Message left for pt's dtr Ryanne to contact cm to discuss dc plan for return [place] at [facility] on Wednesday with Lisa DEAN. Pt is doing better with med mgnt per ST but will need reminders.
[2021-06-04 19:38] VITALS: BP 103/39
--- NOTE | 2021-06-04 20:04 | NUR ---
PT MENTIONED THAT SHE WOULD LIKE TO STAY UNTIL WEDNESDAY DUE TO HER DTR IS GOING OUT OF TOWN TO [facility] WEDNESDAY, AND THEN THERE WOULD NOT BE ENOUGH STAFF OVER THE WEEKEND AT [facility] AND SHE DOESN'T FEEL STEADY ON HER FEET ENOUGH TO BE ON HER OWN.
[2021-06-04 20:49] VITALS: BP 113/56
--- NOTE | 2021-06-05 02:55 | NUR ---
PT ASSESSMENT COMPLETED AND VSS. MEDS GIVEN ORDERED AND WELL TOLERATED. FALL PRECAUTIONS IN PLACE. PT ANXIOUS ABOUT GOING HOME ON WEDNESDAY AND SAYS THAT SHE FEELS LIKE SHE NEEDS A FEW MORE DAYS. ALSO SHE IS WORRIED BECAUSE HER DAUGHTER WILL BE OUT OF TOWN THIS WEEKEND. PT DENIES NEEDS. SLEEPING WELL. WILL CONTINUE TO MONITOR FREQUENTLY.
[2021-06-05 08:00] VITALS: BP 131/81
--- NOTE | 2021-06-05 09:00 | NUR ---
Arturo spoke with daughter briana #[phone] cell. Cm passed on information from team meeting and dcp. She agreed but declined home health, going to have someone check on 4 x per day through [facility]. Her grandson will pick her up by 3pm tomorrow and i am going to [place] today and will be back on wednesday per briana.
[2021-06-05 20:05] VITALS: BP 125/51
--- NOTE | 2021-06-05 20:21 | NUR ---
PT REMEMBERED TO CALL FOR HER MEDS THIS EVENING.
--- NOTE | 2021-06-05 23:40 | NUR ---
PT ASSESSMENT COMPLETED AND VSS. MEDS GIVEN ORDERED AND WELL TOLERATED. FALL PRECAUTIONS IN PLACE. UP TO THE BATHROOM WITH ASST/GAIT/WALKER. STEADY. PT DID REMEMBER TO CALL FOR HER MEDICATION THIS EVENING. PT DENIES NEEDS. SLEEPING WELL. WILL CONTINUE TO MONITOR FREQUENTLY.
[2021-06-06 08:00] VITALS: BP 130/55
--- NOTE | 2021-06-06 08:58 | NUR ---
PT UP TO W/C THIS AM EATING BREAKFAST. PT DID CALL FOR MEDS THIS AM. PT TOLERATED MEDS IN APPLESAUCE. PT EXCITED ABOUT GOING HOME WEDNESDAY. PT UP WITH WALKER WITH STEADY GAIT. PT DENIES ANY PAIN. PT DID HAVE AREA TO RT FA THAT LOOKED LIKE A BUMP, NO REDDNESS NOTED.
--- NOTE | 2021-06-06 11:40 | NUR ---
Nutrition followup: pt continues on rehab unit. Reports good appetite, noted 50-80% of meals and likes glucerna-drinks 100%. Obtained flavor preferences. No weight since 05/28. Mild/moderate dysphagia followed by [facility] controlled. Plan D/C 06/09. Low nutrition risk.
--- NOTE | 2021-06-06 16:30 | NUR ---
REPORT RECEIVED AT 11AM FROM PREVIOUS RN. PT HAS PARTICIPATED IN ALL THERAPIES THIS AFTERNOON, AND HAS HAD NO COMPLAINTS. PT IS CONTINENT, AND DURING TOILETING NOTED TO RN THAT SHE IS STAYING UNTIL WEDNESDAY, TO COMPLETE THERAPIES AND WILL THEN DC TO [facility]. PT IS CALLING FOR HER MEDICAITONS.
[2021-06-06 16:32] VITALS: BP 125/51
[2021-06-06 19:18] VITALS: BP 118/58
--- NOTE | 2021-06-07 04:37 | NUR ---
ASSUMED CARE AT 1930 OF 06/06. PATIENT IS A&OX4, DENIES PAIN OR SHORTNESS OF BREATH AT ASSESSMENT. STAND BY ASSIST WITH TRANSFERS AND AMBULATION, USING BG AND WALKER. TOLERATED ORAL MEDS WHOLE IN YOGURT. PATIENT CALLED OUT FOR MEDICATION AT HS. SLEEPING DURING ROUNDS. FALL PRECAUTIONS IN PLACE, CALL LIGHT WITHIN REACH. WILL CONTINUE TO MONITOR.
--- NOTE | 2021-06-07 10:26 | PLAN ---
[facility] [place] [address] REHAB UNIT PLAN OF CARE Name: ALEXEY SIDDIQUI Room #: 510-P ADM IN M.R.#: [id number] Admission: 05/28/21 Attend Phys: Oscar Sandy MD Discharge: Date of : 34 Report #: [id number] THIS REPORT FOR: cc: Dinora Rivera MD, Paula V. MD Smithson,Oscar Vidales MD ~ DATE OF SERVICE: 05/31/2021 PROGRESS NOTE/OVERALL PLAN OF CARE HISTORY OF PRESENT ILLNESS: The patient is seen back in followup. She was seen back earlier and was in no distress. Last recorded temperature of 36.7, pulse 78, respirations 18, blood pressure 122/63. No focal calf swelling. She was in no distress. She is on room air. She tends to be hard of hearing and can be forgetful at times. She has been working in therapies with transfers, min assist and gait, min assist, 41 feet with a front-wheeled walker. In occupational therapy, lower body dressing is min assist with upper body dressing, supervision. In speech therapy, she is wasf-fu-[id number] with cognitive deficits with severe memory deficits. She is on a regular diet with all liquids. ASSESSMENT: An 86-year-old female with the following problem list: 1. Medical complexity with generalized debilitation and falls. 2. Atrial fibrillation with rapid ventricular response. 3. Community-acquired pneumonia with sepsis. 4. Question of orthostatic hypotension. 5. Diabetes mellitus type 2. 6. Suspected peripheral neuropathy. 7. History of right total hip arthroplasty. 8. Degenerative arthritis. PLAN: The overall plan of care is based on the pre-admit screen and information garnered from therapy assessments. 1. Estimated length of stay is probably around 10-14 days. 2. Medical prognosis is reasonably good. 3. Anticipated interventions include the interdisciplinary acute inpatient rehabilitation program. 4. Anticipated functional outcomes would be for the patient to become modified independent with transfers, mobility and ADLs, and to improve as far as overall cognition, so that she can return back to the home setting. 5. Discharge disposition would be back to her independent living apartment. She may need more assistance upon returning there. 6. Expected therapy by discipline includes PT, OT and speech 1 hour per day each 5 days a week throughout the duration of the acute [place] [address] REHAB UNIT PLAN OF CARE Name: ALEXEY SIDDIQUI Room #: 510-P [facility]#: [id number] Admission: 05/28/21 Attend Phys: Oscar Sandy MD Discharge: Date of : 34 Report #: [id number] ADDENDUM: The patient's prognosis for significant practical improvement within a reasonable period of time appears good. Given the patient's complex medical condition and risk of further medical complication, rehabilitation services cannot be safely provided at a lower level of care such as a care home facility. <ELECTRONICALLY SIGNED> By: Oscar Sandy MD 06/07/21 1026 0950 1046 Oscar Sandy MD /nt
[2021-06-07 11:52] VITALS: BP 136/79
--- NOTE | 2021-06-07 13:34 | NUR ---
Assumed care from warehouse worker 2nd shift this morning. Client was in bed resting. Client presented calm and cooperative though had slight issues with hearing this staff- staff enunciated and spoke slightly louder to help client with this. Client's blood sugar was taken at this time, and was 147. Client stated to staff that she needed to take her medications for nine o'clock, as instructed by OT and ST. Nursing thanked client for following her care plan as directed, and told client that nurse would be back with medication soon. Client picked up the phone and called the nursing station, and stated "it's not ringing." Client was reoriented and again informed that her nurse was in the room, and that she did not need to call as she informed nursing directly. Client stated "oh, ok." Client took all medications whole in apple sauce at this time. Client asked, "why are there so many medications; I thought I took them this morning." Client was informed that she had taken two medications this morning, and that these were her nine o'clock medications that she requested earlier. Client education was done about medications and uses. PRN hydocodone given for back pain at this time 12/12 that provided complete pain relief. Later, client's granddaughter called and stated that she had been having trouble reaching client and left number. Client was given number, and message. Client currently is not voicing any concerns at this time.
[2021-06-07 19:45] VITALS: BP 108/63
--- NOTE | 2021-06-08 02:37 | NUR ---
ASSUMED CARE AT 1900 OF 06/07. LEORA IS A&OX4, WITH NOTED FORGETFULNESS. REPORTED PAIN AND SORENESS IN UPPER BACK/NECK, PRN PAIN MEDICATION AND APPLICATION OF WARM COMPRESS IMPLEMENTED TO MANAGE PAIN WITH EFFECTIVENESS. STAND BY ASSIST WITH TRANSFERS AND AMBULATION USING GB AND WALKER.FALL PRECAUTINS IN PLACE, CALL LIGHT WITHIN REACH. WILL CONTINUE TO MONITOR.
[2021-06-08 07:28] VITALS: BP 117/56
--- NOTE | 2021-06-08 08:33 | NUR ---
PT CALLED FOR HER MEDS THIS AM. PT SITTING UP FOR BREAKFAST. PT TOOK MEDS IN YOGART. PT LUNGS CLEAR, NO COUGH. PT DENIES ANY PAIN AT THIS TIME, PT DID SAY SHE HAD PAIN TO HER HIPS AND THINKS SHE WORKED TOO HARD WITH THERAPY. PT UP DONALD W/C.
--- NOTE | 2021-06-08 16:22 | NUR ---
PT COMPLAINS OF PAIN TO LEFT SHOULDER OF 6 ON 1-10 SCALE. ADM HYDROCODONE 7.5MG PO FOR PAIN. PT TOOK WITH YOGART, WILL TRY A HOT PACK.
[2021-06-08 19:06] VITALS: BP 96/42
[2021-06-08 20:18] VITALS: BP 114/70
--- NOTE | 2021-06-08 23:24 | NUR ---
PT ASSESSMENT COMPLETED AND VSS. MEDS GIVEN ORDERED AND WELL TOLERATED. FALL PRECAUTIONS IN PLACE. PT UP TO THE BATHROOM WITH ASST/GAIT/WALKER - STEADY. PT C/O OF PAIN FROM WORKING HARD WITH THERAPY. HER SHOULDER BACK AND LEGS HURT. PT REFUSED PAIN MEDICATION. SLEEPING WELL AT THIS TIME. WILL CONTINUE TO MONITOR FREQUENTLY.
[2021-06-09 07:22] VITALS: BP 97/58
[2021-06-09 08:56] VITALS: BP 97/58
--- NOTE | 2021-06-09 08:56 | NUR ---
ADM TYLENOL 325MG ONE TAB FOR PAIN TO RT HIP OF 7 ON 1-10 SCALE.
--- NOTE | 2021-06-09 08:56 | NUR ---
PT SITTING UP FOR BREAKFAST. PT STATED SHE HAS SOME PAIN TO RT HIP ONLY WITH MOVEMENT. PT STATED PAIN IS SHARP WITH MOVEMENT, AT A 7 ON 1-10 SCALE. PT TOOK MEDS WITH YOGART WITHOUT ANY ISSUES.
--- NOTE | 2021-06-09 10:00 | NUR ---
PT SITTING UP IN W/C. PT HAD A SHOWER THIS AM. PT SPIT UP IN THE TRASH CAN NEXT TO HER. PT STATED SHE FELT BETTER NOW. NO MEDS SEEN IN TRASH. PT WANTED TO LAY DOWN AFTER AM THERAPY TO REST.
[2021-06-09 10:50] LABS: ABSOLUTE NEUTROPHILS 10.4 thou/uL (1.4-8.2); BASOPHILS 0.5 % (0.0-2.0); EOSINOPHILS 0.7 % (0.0-3.0); HEMATOCRIT 30.9 % (37.0-47.0); HEMOGLOBIN 10.1 gm/dL (12.0-15.0); LYMPHOCYTES 5.6 % (24.0-44.0); MCH 28.9 pg (26.0-34.0); MCHC 32.6 g/dL (28.0-37.0); MCV 88.6 fL (80.0-100.0); MONOCYTES 9.2 % (1.0-8.0); PLATELET COUNT 381 thou/uL (150-400); RBC 3.49 mil/uL (4.20-5.00); RDW 19.7 % (10.5-14.5); WBC 12.4 thou/uL (4.0-11.0)
[2021-06-09 10:57] LABS: CALCIUM 8.6 mg/dL (8.5-10.1); CREATININE 1.2 mg/dL (0.6-1.0); MAGNESIUM 1.9 mg/dL (1.8-2.4); POTASSIUM 4.6 mmol/L (3.5-5.1)
[2021-06-09] MEDS ORDERED: SODIUM CHLORI1000 MG PO (12:24)
[2021-06-09 13:00] LABS: ANISOCYTOSIS 1+; PLATELET ESTIMATE NORMAL
== END 2021-06-09 19:21 | disposition home or self-care (01) | DRG 947 ==
PROVIDERS: Hospitalist; Nurse Practitioner; ADMIT Physical Medicine & Rehabilitation; ATTEND Physical Medicine & Rehabilitation
DX: R53.81 Other malaise (principal); J18.9 Pneumonia, unspecified organism; A41.9 Sepsis, unspecified organism; E87.1 Hypo-osmolality and hyponatremia; E44.0 Moderate protein-calorie malnutrition; I48.91 Unspecified atrial fibrillation; I95.1 Orthostatic hypotension; M19.90 Unspecified osteoarthritis, unspecified site; Z96.641 Presence of right artificial hip joint; E11.42 Type 2 diabetes mellitus with diabetic polyneuropathy; K21.9 Gastro-esophageal reflux disease without esophagitis; E78.00 Pure hypercholesterolemia, unspecified; E89.0 Postprocedural hypothyroidism; F41.9 Anxiety disorder, unspecified; F32.9 Major depressive disorder, single episode, unspecified; D50.9 Iron deficiency anemia, unspecified; G31.84 Mild cognitive impairment of uncertain or unknown etiology; I12.9 Hypertensive chronic kidney disease with stage 1 through stage 4 chronic kidney disease, or unspecified chronic kidney disease; M81.0 Age-related osteoporosis without current pathological fracture; R13.10 Dysphagia, unspecified; E11.22 Type 2 diabetes mellitus with diabetic chronic kidney disease; N18.32 Chronic kidney disease, stage 3b; Z88.6 Allergy status to analgesic agent; Z87.891 Personal history of nicotine dependence; Z88.8 Allergy status to other drugs, medicaments and biological substances; Z79.82 Long term (current) use of aspirin; Z79.899 Other long term (current) drug therapy; Z98.42 Cataract extraction status, left eye; Z98.41 Cataract extraction status, right eye; Z68.28 Body mass index [BMI] 28.0-28.9, adult
CPT/HCPCS: 10112

== ENCOUNTER → 2021-06-19 | Outpatient (CLI) | payer OTHER, MEDICARE ==
[~2021-06-19] MED LIST changes: +BAYER CHEWABLE81 MG PO; +CEFUROXIME500 MG PO; +DILTIAZEM 24HR300 M2 PO; +METOPROLOL SUCC50 MG PO; +NIFEREX TABLET1 EACH PO; +SODIUM CHLORI1000 MG PO
== END ==
LOC: SJCVCIMAG 09:46
PROVIDERS: ATTEND Internal Medicine
DX: I08.8 Other rheumatic multiple valve diseases (principal); I49.3 Ventricular premature depolarization; R00.0 Tachycardia, unspecified; I25.10 Atherosclerotic heart disease of native coronary artery without angina pectoris; I48.11 Longstanding persistent atrial fibrillation; I10 Essential (primary) hypertension; E78.5 Hyperlipidemia, unspecified; E11.9 Type 2 diabetes mellitus without complications; D50.9 Iron deficiency anemia, unspecified; E03.9 Hypothyroidism, unspecified; F32.9 Major depressive disorder, single episode, unspecified; M19.90 Unspecified osteoarthritis, unspecified site; Z87.891 Personal history of nicotine dependence; Z79.82 Long term (current) use of aspirin; Z79.899 Other long term (current) drug therapy; Z88.5 Allergy status to narcotic agent; Z88.8 Allergy status to other drugs, medicaments and biological substances

== ENCOUNTER 2021-06-27 19:55 | Inpatient (IN) | payer OTHER, MEDICARE ==
[~2021-06-27] VITALS: Ht 170.2 cm; Wt 77.1 kg
[~2021-06-27 19:55] MED LIST changes: -METOPROLOL SUCC50 MG PO; -NIFEREX TABLET1 EACH PO
[2021-06-27 20:14] VITALS: BP 120/69
[2021-06-27 21:10] LABS: ABSOLUTE NEUTROPHILS 6.7 thou/uL (1.4-8.2); BASOPHILS 1.1 % (0.0-2.0); EOSINOPHILS 1.7 % (0.0-3.0); HEMATOCRIT 28.6 % (37.0-47.0); HEMOGLOBIN 9.1 gm/dL (12.0-15.0); LYMPHOCYTES 14.6 % (24.0-44.0); MCH 27.8 pg (26.0-34.0); MCV 86.7 fL (80.0-100.0); MONOCYTES 10.2 % (1.0-8.0); PLATELET COUNT 595 thou/uL (150-400); POLYS 72.4 % (36.0-66.0); RDW 19.5 % (10.5-14.5); WBC 9.2 thou/uL (4.0-11.0)
[2021-06-27 21:21] LABS: CALCIUM 8.6 mg/dL (8.5-10.1); POTASSIUM 3.1 mmol/L (3.5-5.1)
[2021-06-28 05:44] LABS: HEMATOCRIT 26.5 % (37.0-47.0); MCH 29.4 pg (26.0-34.0); MCV 86.2 fL (80.0-100.0); RBC 3.07 mil/uL (4.20-5.00); RDW 18.1 % (10.5-14.5); WBC 8.4 thou/uL (4.0-11.0)
[2021-06-28 06:07] LABS: CALCIUM 8.2 mg/dL (8.5-10.1); CREATININE 0.9 mg/dL (0.6-1.0); POTASSIUM 3.5 mmol/L (3.5-5.1)
[2021-06-28 07:50] VITALS: BP 140/83
[2021-06-28 13:45] VITALS: BP 109/52
[2021-06-28 14:23] VITALS: BP 126/51
[2021-06-28 15:00] VITALS: BP 119/95
--- NOTE | 2021-06-28 17:55 | NUR ---
[age]AR OLD FEMALE ADMITTED TO 2N ROOM 209. PT WAS BROUGHT IN PER FAMILY DUE TO DIARRHEA, DARK TARRY STOOLS, SOA AND WEAKNESS. PT ALERT AND ORIENTED TIMES FOUR. VSS. PROTONIX GTT INFUSING PER ORDER. PT DENIES PAIN. SOA ON EXCERTION. PT UP TO RESTROOM WITH STANDBY ASSIST. PT GRANDSON AT BEDSIDE DURING ADMISSION ASSESSMENT. WILL CONTINUE TO MONITOR.
[2021-06-28 20:18] VITALS: BP 146/76
--- NOTE | 2021-06-29 03:39 | NUR ---
ASSESSMENTS CHARTED, MEDS CHARTED GIVEN. PATIENT UNABLE TO SLEEP THIS EVENING. UNABLE TO QUIET HER LEGS SO SHE CAN SLEEP. ON PROTONIX GTT, NPO SINCE MIDNIGHT FOR EGD IN THE AM. AFIB ON TELEMETRY DURING SHIFT.UP WITH SDBY ASSIST TO BSC. ANTIBIOTIC THERAPY.
[2021-06-29 04:09] LABS: HEMATOCRIT 31.3 % (37.0-47.0); MCH 27.7 pg (26.0-34.0); MCHC 31.9 g/dL (28.0-37.0); MCV 86.8 fL (80.0-100.0); RBC 3.6 mil/uL (4.20-5.00); RDW 19.4 % (10.5-14.5); WBC 9.9 thou/uL (4.0-11.0)
[2021-06-29 04:54] VITALS: BP 132/71
[2021-06-29 08:33] VITALS: BP 179/118
--- NOTE | 2021-06-29 09:35 | HC ---
[facility] [place] [address] CONSULTATION Name: ALEXEY SIDDIQUI Room #: 209-P ADM IN M.R.#: [id number] Admission: 06/27/21 Attend Phys: Driss Kenney MD Discharge: Date of : 34 Report #: [id number] THIS REPORT FOR: cc: Mallory Monte MD, Melanie MD McElhinney, Christian C. MD ~ cc: Lawrence Lee MD DATE OF SERVICE: 06/28/2021 HISTORY OF PRESENT ILLNESS: The patient is an 86-year-old female who reportedly has a history of chronic anemia, multiple medical problems, was noted to start having melanotic stools and diarrhea several days ago. She does take an 81 mg aspirin. She began holding this 2 days ago, probably has had more diarrhea after eating. Stools are Hemoccult positive here on admission. Hemoglobin on admission was 9.1 yesterday, is 9.0 today. Looking back in the computer over time, hemoglobin has been in the 7-9 range for many years. Reportedly, she has not been started on other anticoagulation for history of AFib due to her anemia. She denies any abdominal pain. She does report some mild nausea. She denies any emesis. She is unclear when her last colonoscopy was done, but this was many years ago. If she has had an upper endoscopy that was also many years ago. She denies any dysphagia. She is on Prilosec on a daily basis, which she states she has been taking for many years. There is no family history of colon cancer. She was hospitalized over for strep pneumonia. At this time, denies any fevers, chills, chest pain, or shortness of breath. PAST MEDICAL HISTORY: Anemia; atrial fib; gastroesophageal reflux disease, on daily PPI therapy; history of diabetes; previous laminectomy; total right hip replacement; hypothyroidism; hypertension; cataracts bilaterally; chronic renal insufficiency; osteoporosis; depression; anxiety. ALLERGIES: PHENERGAN, CODEINE, REQUIP, PROPOXYPHENE. MEDICATIONS ON ADMISSION: Aspirin 81 mg, diltiazem, Synthroid, Prilosec over the counter 20 mg daily, Zoloft, Zocor, clonazepam, hydrocodone p.r.n., calcium, docusate. FAMILY HISTORY: Negative for colon cancer. SOCIAL HISTORY: She quit smoking in 1984. She denies any alcohol use. PHYSICAL EXAMINATION: VITAL SIGNS: Temperature is 36.7, pulse is 94, blood pressure 146/86, respiratory rate 16. GENERAL: She is alert and oriented x3, in no acute distress. HEENT: The patient has decreased hearing bilaterally. Sclerae nonicteric. [address] [address] CONSULTATION Name: CHENALEXEY YANNA Room #: 209-P [facility] IN M.R.#: [id number] Admission: 06/27/21 Attend Phys: Driss Kenney MD Discharge: Date of : 34 Report #: [id number] Oropharynx clear. NECK: Supple without lymphadenopathy. CARDIOVASCULAR: Regular rate and rhythm. CHEST: Clear to auscultation bilaterally. ABDOMEN: Soft, nontender, nondistended. Normoactive bowel sounds. EXTREMITIES: No cyanosis, clubbing, or edema. LABORATORY DATA: WBC is 8.4, hemoglobin 9.0, platelet count is 505. Sodium 143, potassium 3.5, chloride 106, bicarbonate 27, BUN 10, creatinine 0.9, glucose 101. COVID was negative. Stool Hemoccult positive yesterday. ASSESSMENT AND PLAN: Anemia. Apparently, the patient with a history of chronic anemia. She is Hemoccult positive at this time. She has been on aspirin, but also on Prilosec on a regular basis. No recent history of EGD or colonoscopy. I had a long discussion today with the patient regarding her workup to date. I would recommend proceeding with an upper endoscopy tomorrow initially. If this is negative, could consider colonoscopy at that point. Continue PPI therapy. Continue to hold aspirin. The patient also with recent diarrhea. We will continue to monitor. Again, may need a colonoscopy in the near future. May need to consider stool studies if she has continued symptoms. In the meantime, continue to monitor hemoglobin and continue PPI therapy. Thank you for allowing me to participate in her care. <ELECTRONICALLY SIGNED> By: Dany Lopez MD 06/29/21 0935 1214 1852 Dany Lopez MD /nt
[2021-06-29 11:10] VITALS: BP 125/77
--- NOTE | 2021-06-29 15:05 | NUR ---
Pt HR sustained in 120s. Gave 5mg Lopressor IV push per CW OPERATOR verbal order. Pt HR continues to be sustained in 120s. Left voicemail for CW OPERATOR at 1400 and 1500. Waiting for further instructions. Will continue to monitor.
[2021-06-29 16:09] VITALS: BP 128/69
--- NOTE | 2021-06-29 19:21 | NUR ---
Pt was A&0x4, pleasant and resting in bed. Afebrile throughout shift. HR was AFIB uncontroled until 1600 at which time HR dropped to 90s and low hundreds. Plan is for EGD 06/30/21. No current concerns. Continue to monitor.
[2021-06-29 20:32] VITALS: BP 140/85
[2021-06-30] VITALS (7 sets, daily range): BP systolic 102–125; BP diastolic 54–73
--- NOTE | 2021-06-30 02:39 | NUR ---
ASSESSMENTS CHARTED, MEDS CHARTED GIVEN. PATIENT RESTING IN BED DURING SHIFT. PATIENT WAS UNABLE TO HAVE EGD DUE TO UNSTABLE AFIB. RESCHEDULED FOR TODAY, WEDNESDAY. PATIENT HAS BEEN NPO SINCE MIDNIGHT IN PREPARATION FOR PROCEDURE.
[2021-06-30 05:21] LABS: HEMATOCRIT 29.2 % (37.0-47.0); HEMOGLOBIN 9.4 gm/dL (12.0-15.0); MCH 27.9 pg (26.0-34.0); MCHC 32.1 g/dL (28.0-37.0); MCV 86.9 fL (80.0-100.0); RBC 3.35 mil/uL (4.20-5.00); RDW 18.8 % (10.5-14.5); WBC 9.4 thou/uL (4.0-11.0)
--- NOTE | 2021-06-30 11:50 | NUR ---
Nutrition: Seen for high risk screen. Report of 2-13# wt loss x last 3 months and decreased appetite GRADUATE CIVIL ENGINEER. Pt has had several admission to [facility] recently with dx PNE, new dx Afib. On this admit, pt with suspected GIB; with loose, melatonic stools; occult stool+ on admit. EGD scheduled for yesterday was post poned until today d/t unstable HR and anemia with no anticoagulation. Per [facility] records, weight stable >30 days. Intakes 100% lunch and 80% dinner yesterday. Currently NPO for EGD. Will add Glucerna at lunch r/t report of weight loss; hx pt enjoys these. Low nutrition risk with interventions initiated. Follow with GI for plan.
[2021-06-30 14:54] LABS: % SATURATION 14 % (20-39); IRON 21 ug/dL (50-170); TIBC 151 ug/dL (250-450)
[2021-06-30] MEDS ORDERED: METOPROLOL SUCC50 MG PO (15:12)
[2021-06-30] MEDS ORDERED: CEFUROXIME500 MG PO (15:12)
[2021-06-30] MEDS ORDERED: NIFEREX TABLET1 EACH PO (15:38)
--- NOTE | 2021-06-30 16:40 | NUR ---
PATIENT ADMITTED FOR R/O UGI BLEED; ANEMIA. CHART REVIEWED AND DISCUSSED WITH CARE TEAM. CHOIRMASTER PT RECEIVING SERVICES WITH ALICIA DEAN. RECEIVED CALL FROM PTS GRANDSON CONCERNED ABOUT PT DISCHARGING HOME WITH HH. HE REPORTS THE LAST TIME PT WAS DISCHARGED SHE WAS UNABLE TO TRANSFER FROM THE CAR TO HER ROOM. HE DIDNT WANT PT RUSHED TO DISCHARGE. THIS CM SPOKE TO GRANDSON REPORTING THERAPY EVALS AND RECOMMENDATIONS. PTS SON REPORTS HE WAS WAITING FOR A CALL BACK FROM WITH TEST RESULTS AND HAD NOT HEARD FROM HIM. MESSAGED RELAYED TO PHYSICIAN. PTS GRANDSON CALLED BACK INDICATING PHYSICIAN HAD CALLED HIM BACK AND INIDICATED PT WOULD GO HOME ON IRON AND ASA. PTS GRANDSON AGREEABLE. ULISES LIASON NOTIFIED OF PT DISCHARGE AND AWARE. PTS SON CALLED BACK INDICATING HE SPOKE TO THE PT ABOUT DISCHARGE THIS EVENING AND SHE REPORTED SHE DIDNT FEEL SAFE SHE WAS UNABLE TO TRANSFER OFF TOILET BY HERSELF. PHYSICIAN MADE AWARE AND WILL HOLD DC TONIGHT. PTS GRANDSON AND PT AGREEABLE TO DC TOMORROW. SISTER TOMORROW WILL STAY WITH PT AND GRANDSON REPORTED HE WAS CONFIDENT HE COULD MOVE PT TO [facility] WITHIN THE NEXT [address] [facility] MADE AWARE PT WILL STAY TONIGHT.
--- NOTE | 2021-06-30 19:52 | NUR ---
Pt was A&Ox4, VS stable and afebrile throughout shift. HR was controlled. Pt had EGD in AM and report showed gastritis and hiatial hernia. GI offered colonoscopy and pt stated that "she would rather not". Discharge was planned for 06/30. Grandson spoke with MD about his concerns about pt returning home independtly. Pt also stated uneasiness about going home tonight. Plan is for pt to spend the night and then discharge 07/01/21 to home with . Grandson plans to arrange for assisted living by end of week. No reports of pain. No current concerns. Continue to monitor.
--- NOTE | 2021-07-01 04:00 | NUR ---
PT CALLS APPROPRIATELY. UP WITH SBA TO THR BATHROOM. NO SIGNS OF BLEEDING. AFIB CONTROLLED. DENIES SOA. PLACED ON WHILE SLEEPING TO KEEP OXYGEN ABOVE 92%
[2021-07-01 04:44] VITALS: BP 119/79
[2021-07-01 05:01] LABS: HEMATOCRIT 27.6 % (37.0-47.0); HEMOGLOBIN 8.9 gm/dL (12.0-15.0); MCHC 32.2 g/dL (28.0-37.0); MCV 86.9 fL (80.0-100.0); RBC 3.18 mil/uL (4.20-5.00); RDW 18.7 % (10.5-14.5); WBC 9.2 thou/uL (4.0-11.0)
[2021-07-01 09:43] VITALS: BP 118/83
--- NOTE | 2021-07-01 12:25 | NUR ---
Pt A & O x4. Pt VS stable. Pt is a-fib on the tele. Pt is room air. PT is x 1 assist with ADLs and cares. Pt ambulates with walker. Pt received medications as ordered. Pt received discharge orders to home. Discharge instructions reviewed with pt and pt verbalizes understanding and signed instructions. Pt wheeled to enterence in wheel chair by staff with personal belongings and left hosptial without incident in private vehicle.
--- NOTE | 2021-07-01 15:58 | NUR ---
Patient discharged home today with care with [facility]. Sp with liason with [facility] and they have orders. no further needs
--- NOTE | 2021-07-03 11:07 | PATH ---
[facility] [address] [address] PATHOLOGY RPT PROCEDURE Name: ALEXEY WERNER Room #: 209-P DIS IN M.R.#: [id number] Admission: 06/27/21 Date of : 34 Discharge: 07/01/21 Report #: [id number] Path Case #: [id number] [facility] Accession Number: [id number] . 01 Material submitted: . PART A: stomach - GASTRIC ANTRUM R/O H. PYLORI PART B: esophagus - DISTAL ESOPAHGUS R/O CAMPBELL'S. Modifiers: distal . 01 Clinical history: . ESOPHAGOGASTRODUODENOSCOPY MELENA, ANEMIA HIATAL HERNIA, GASTRITIS . 02 Diagnosis: A. Stomach "gastric antrum", biopsy: - Gastric antral mucosa with features of reactive gastropathy. - Negative for active inflammation, intestinal metaplasia, dysplasia and malignancy. - Negative for Helicobacter pylori. . B. Esophagus "distal", biopsy: - Gastric cardia mucosa with chronic inflammation. - Negative for intestinal metaplasia, dysplasia and malignancy. . (ARTURO:massimo; 07/01/2021) MBR 07/02/2021 1104 Local . 02 Electronically signed: . Julissa Pacheco MD, Pathologist NPI- [id number] . 01 Gross description: . A. The specimen is received in formalin, labeled "Alexey Werner, gastric antrum". Received are 3 segments of pale beckford tissue ranging in size from 0.3 to 0.4 cm in maximum dimensions. The specimen is submitted entirely in cassette A1. . B. The specimen is received in formalin, labeled "Alexey Werner, distal esophagus". Received is a segment of pale beckford tissue measuring 0.3 cm in maximum dimensions. The specimen is submitted entirely in cassette B1.([facility]; 06/30/2021) [facility] 06/30/2021 1833 Local . 02 Microscopic: . Immunohistochemical stain results (properly controlled): Helicobacter pylori (A1) - negative for organisms. (ARTURO:massimo; 07/01/2021) [address] [address] PATHOLOGY RPT PROCEDURE Name: ALEXEY WERNER Room #: 209-P DIS IN M.R.#: [id number] Admission: 06/27/21 Date of : 34 Discharge: 07/01/21 Report #: [id number] Path Case #: [id number] . 02 Pathologist provided ICD-10: K29.50, K92.1 . 02 CPT . 138830, 829048, [id number] Specimen Comment: A courtesy copy of this report has been sent to [phone], [phone] Specimen Comment: [phone], Specimen Comment: Report sent to , DR DENIS / DR MATSON Specimen Comment: A duplicate report has been generated due to demographic updates. Performed at: [facility] [address] [id number] MD Abiel Perea MD Phone: [phone] Performed at: [address] [id number] MD Chencho Moura MD Phone: [phone]
== END 2021-07-01 12:31 | disposition home health service (06) | DRG 377 ==
LOC: ER 19:55 → 2N 23:02 → EROBS 23:02 → 2N 06-28 14:14
PROVIDERS: Emergency Medicine; Nurse Practitioner; Nurse Practitioner Family; ADMIT Hospitalist; ATTEND Hospitalist
DX: K29.71 Gastritis, unspecified, with bleeding (principal); J18.9 Pneumonia, unspecified organism; D62 Acute posthemorrhagic anemia; K22.70 Barrett's esophagus without dysplasia; Z20.822 Contact with and (suspected) exposure to COVID-19; K21.9 Gastro-esophageal reflux disease without esophagitis; Z96.641 Presence of right artificial hip joint; E78.5 Hyperlipidemia, unspecified; E89.0 Postprocedural hypothyroidism; F32.9 Major depressive disorder, single episode, unspecified; F41.9 Anxiety disorder, unspecified; E11.22 Type 2 diabetes mellitus with diabetic chronic kidney disease; I12.9 Hypertensive chronic kidney disease with stage 1 through stage 4 chronic kidney disease, or unspecified chronic kidney disease; R53.81 Other malaise; I48.0 Paroxysmal atrial fibrillation; N18.32 Chronic kidney disease, stage 3b; K44.9 Diaphragmatic hernia without obstruction or gangrene; I25.10 Atherosclerotic heart disease of native coronary artery without angina pectoris; M81.0 Age-related osteoporosis without current pathological fracture; Z79.01 Long term (current) use of anticoagulants; Z88.6 Allergy status to analgesic agent; Z98.42 Cataract extraction status, left eye; Z98.41 Cataract extraction status, right eye; Z88.8 Allergy status to other drugs, medicaments and biological substances; Z87.891 Personal history of nicotine dependence; Z79.82 Long term (current) use of aspirin; Z79.899 Other long term (current) drug therapy
CPT/HCPCS: 10081; 62110; 62900; 70005